=== PATIENT | male | born 1980 | race Caucasian/White ===

== ENCOUNTER 2016-11-05 18:15 | Inpatient (IN) | payer OTHER, BC ==
[~2016-11-05] VITALS: Ht 165.1 cm; Wt 68.5 kg
[2016-11-06] VITALS: BP 132/79
[2016-11-06] MEDS ORDERED: ONDANSETRON ODT 4 MG TAB.RAPDIS SL PRN
[2016-11-06] MEDS ORDERED: DICYCLOMINE HCL 20 MG TABLET PO PRN
[2016-11-06] MEDS ORDERED: MAG HYDROX/AL HYDROX/SIMETH 30 ML LIQUID UDC PO PRN
[2016-11-06] MEDS ORDERED: diphenhydrAMINE 50 MG CAPSULE PO PRN
[2016-11-06] MEDS ORDERED: MAGNESIUM HYDROXIDE 30 ML LIQUID UDC PO PRN
[2016-11-06] MEDS ORDERED: LORAZEPAM 2 MG/1 ML VIAL IM PRN
[2016-11-06] MEDS ORDERED: LOPERAMIDE HCL 2 MG CAPSULE PO PRN ×2
[2016-11-06] MEDS ORDERED: MIRALAX 17 GM POWD.PACK PO PRN
[2016-11-06] MEDS ORDERED: LORAZEPAM 1 MG TABLET PO PRN ×2
[2016-11-06] MEDS ORDERED: IBUPROFEN 400 MG TABLET PO PRN
--- NOTE | 2016-11-06 00:15 | NUR ---
Intake Assessment Assessment done at intake office. Patient is alert & oriented to name, place & situation. Pt is ambulatory with a steady gait. Patient appears intoxicated but cooperative during interviews. Speech is slurred but audible. Vitals noted B/P 132/79, NC 108, RR 18, Temp 97.1, O2Sat 94%. Pt is here for ETOH. No seizure history noted. Pt has no known food and drug allergies. Pt brought his home medications. Explained to pt unit protocols. Pt informed on policy regarding destruction of any controlled substances/prescription brought to facility and handling of all medications. Pt verbalized understanding.
--- NOTE | 2016-11-06 00:28 | NUR ---
ADMISSION NOTE: Patient is a 36 y.o male admitted at [facility] at approximately 0028pm of 11/06/16 for medically supervised withdrawal from ETOH. Body search done and skin check performed in Room 303, no contraband found. Surgery scar noted on his left foot. Pt is 5'5" tall and weighs 151 lbs in a standing scale. Pt is cooperative during assessment. Patient is oriented to floor unit and room. Patient follows a regular diet at home with no known food and drug allergies. Pt wishes to be full Code. Patient is alert & oriented x4, ambulatory with a steady gait. Speech is slurred but audible. Pt is intoxicated but able to answer questions. Patient appears anxious and agitated. Respiration even & unlabored. Abdomen soft & non-distended. Bowel sounds active in all four quadrants. No nausea/vomiting noted. Patient complains of 8/10 headache & sweating. Gross tremors noted. Pt denies any hallucinations. Vitals upon admission: B/P 132/79, ND 108, Temp 97.1, RR 18, O2Sat 94%. Patient noted with past medical history of Anxiety, Depression, Insomnia, Knee Surgery, Left foot surgery(Jul 2016) & low WBC. No history of suicide attempt. Pt currently denies SI/HI. Pt was able to provide urine sample for drug screen upon admission and is voiding clear yellow urine with no problems. Substance use: 1. ETOH- Pt has been drinking since 18 years old. Pt drinks 2 pint of Vodka/Rum/Whiskey/Beer daily for 7 months. Last drink was 2 pint 4 hours prior to admission. 2. [place]- Pt took 3 pills of prescription [place] prior to admission. Pt denies dependence on [place]. It was prescribed to him for pain after his foot surgery but has not been taking it. 3. Marijuana- pt smokes 1 gram daily. Last smoke was1 gram yesterday 11/04/16. Treatment History: -[facility] in [place] for 3 months(2003) -[facility] in [place] for 28 days (Mar 2016) Patient reported that he had an endoscopy a week ago and was suppose to stay there for a couple of days but left AMA and only stayed there for 8 hours. Patient reports his longest period of sobriety was for 3 months 3 months 2 years ago. Patient reports symptoms when he does not use as hot and cold sweats, shaking, tachycardia, headache, anxiety, and agitation. Patient smokes 10-20 cigarettes daily. Patient refused pneumonia vaccine, educated patient risk & benefits but still refused. Patient does not have a PCP. Urine drug screen came back positive for Cannabinoids & Opiates. Alcohol level is 0.22. Fall & Seizure precautions are in place. All needs attended & met. Safety precautions are in place. Bed locked in lowest position. Both side rails padded & up. Call light within pt's reach. Notified Dr. Wall of pt's admission and will see pt in the morning. Awaiting for admission order. Will continue to monitor patient. Addendum: 11/06/16 at 0358 by JUS CHE RN surgery scar noted on his left food. Skin intact. No drainage or bleeding noted.
[2016-11-06] MEDS ORDERED: THIAMINE HCL 200 MG/2 ML VIAL IM ONE (00:30)
[2016-11-06 00:39] LABS: *AMPHETAMINE, URINE NEGATIVE (NEGATIVE); *BARBITURATE, URINE NEGATIVE (NEGATIVE); *CANNABINOID, URINE POSITIVE (NEGATIVE); *COCCAINE, URINE NEGATIVE (NEGATIVE); *OPIATE, URINE POSITIVE (NEGATIVE); *PHENCYCLIDINE SCREEN,URINE NEGATIVE (NEGATIVE)
--- NOTE | 2016-11-06 00:42 | NUR ---
PRN Ativan & Motrin Patient presented with sweating, gross tremors, 8/10 headache & shortness of breath. Pt appears moderately anxious and agitated. No hallucinations or nausea noted. CIWA 14 noted at this time. B/P 131/74, HR 105, RR 16, O2Sat 97%. PRN Ativan 1mg & Motrin administered as ordered. Will monitor for effectiveness of medication.
[2016-11-06] MEDS ORDERED: LORAZEPAM 1 MG TABLET ONE (00:43)
[2016-11-06] MEDS ORDERED: IBUPROFEN 400 MG TABLET ONE (00:44)
[2016-11-06 00:45] VITALS: BP 131/74
[2016-11-06] MEDS ORDERED: THIAMINE HCL 200 MG/2 ML VIAL ONE (00:46)
[2016-11-06 01:07] LABS: BASOPHILS % (AUTO) 0.4 % (0.0-2.0); EOSINOPHILS # (AUTO) 0.1 K/uL (0.0-0.7); EOSINOPHILS % (AUTO) 0.6 % (0.0-7.0); HEMATOCRIT 43.7 % (40-50); HEMOGLOBIN 14.8 G/DL (14.0-18.0); MEAN CORPUSCULAR HEMOGLOBIN 31.1 UUG (27.0-31.0); MEAN CORPUSCULAR HGB CONC 34 g/dL (32.0-37.0); MEAN CORPUSCULAR VOLUME 92.1 FL (82.0-92.0); MONOCYTES # (AUTO) 0.7 K/UL (0.1-1.30); MONOCYTES % (AUTO) 7.7 % (0.0-11.0); NEUTROPHILS # (AUTO) 4.4 K/UL (1.8-8.9); NEUTROPHILS % (AUTO) 48.3 % (38.5-71.5); PLATELET COUNT (AUTO) 219 K/UL (150-450); RED BLOOD CELL COUNT(AUTO) 4.75 MIL/UL (4.7-6.1); WHITE BLOOD COUNT (AUTO) 9.2 K/UL (4.0-11.2)
[2016-11-06 01:11] LABS: BILIRUBIN,TOTAL 0.4 mg/dL (0.2-1.0); MAGNESIUM 2.1 mg/dL (1.8-2.4); POTASSIUM 3.4 mmol/L (3.5-5.1); TOTAL PROTEIN, SERUM 7.6 g/dL (6.4-8.2)
[2016-11-06 01:21] LABS: THYROID STIMULATING HORMONE 1.619 mIU/mL (0.358-3.740)
--- NOTE | 2016-11-06 01:42 | NUR ---
PRN Reassessment Patient noted with fine tremors, sweating, moderate headache, mild anxiety and mild agitation. No hallucinations noted. CIWA 9 noted at this time. Will continue to monitor patient.
[2016-11-06] MEDS ORDERED: POTASSIUM CHLORIDE 20 MEQ TAB.PRT.SR PO ONE (01:45)
[2016-11-06] MEDS: ACETAMINOPHEN 325 MG TABLET PO PRN ×3 (01:47→14:02)
--- NOTE | 2016-11-06 01:47 | NUR ---
PRN Tylenol and one time K-dur 40MeQ. Patient still complaining of 8/10 headache. Patient noted with facial grimacing and restlessness. PRN Tylenol administered as ordered. Pt also noted with a potassium level of 3.4. K-dur 40meQ administered as ordered for replacement. Will continue to monitor patient.
[2016-11-06] MEDS ORDERED: GABA-534 PO (01:52)
[2016-11-06] MEDS ORDERED: DICL2.5D EACHEYE (01:52)
[2016-11-06] MEDS ORDERED: ACETAMINOPHEN 325 MG TABLET ONE (01:56)
[2016-11-06] MEDS ORDERED: POTASSIUM CHLORIDE 20 MEQ TAB.PRT.SR ONE (01:57)
[2016-11-06] MEDS ORDERED: LIDO30CR TP (02:00)
[2016-11-06] MEDS ORDERED: METH4TAB16 PO (02:00)
[2016-11-06] MEDS ORDERED: NAPR-1160 PO (02:00)
[2016-11-06] MEDS ORDERED: HYDR-3326 PO (02:00)
--- NOTE | 2016-11-06 04:00 | NUR ---
Vitals/CIWA deferred Patient refused vitals at this time. Patient is asleep and appears comfortable. No shortness of breath noted. Unable to assess CIWA at this time. Will continue to monitor patient.
[2016-11-06] MEDS ORDERED: DICL2.5D TP (06:10)
--- NOTE | 2016-11-06 07:15 | NUR ---
End of Shift Note: Patient is a 36 y/o male admitted on 0028 of 11/06/16 for ETOH dependence. Patient noted with past medical history of Anxiety, Depression, Insomnia, Knee Surgery, Left foot surgery(Jul 2016) & low WBC(leukocytopenia). No seizure history noted. Patient is on a regular diet with no known food and drug allergies. Full Code status. Patient has no taper yet. Patient was given PRN Ativan, Motrin & Tylenol during my shift. Patient remained stable and vitals remains WNL. Pt still asleep at this time with no s/s of distress noted. Pt was able to sleep for a total of 3 hours. Consumed 850 ml of fluids. Voided 1x with no bowel movement. All needs attended met. Safety measures in place. Will endorse pt to day shift nurse.
[2016-11-06 08:00] VITALS: BP 114/79
[2016-11-06] MEDS: MULTIVITAMINS,THERAPEUTIC TABLET PO SCH (08:18)
[2016-11-06] MEDS: THIAMINE HCL 100 MG TABLET PO SCH (08:18)
[2016-11-06] MEDS: FOLIC ACID 1 MG TABLET PO SCH (08:18)
--- NOTE | 2016-11-06 08:18 | NUR ---
START OF SHIFT Received report from weight shifter nurse. Patient is 36 year old male admitted for medically supervised withdrawal from alcohol. Patient is full code with NKA. On assessment this AM: CIWA: 16. Denies SOB, chest pain. vitals signs WNL. Reports anxiety agitation, tremors, headache 12/10, stomach upset, numbness on hands and feet and noted agitation. Med compliant with AM meds. PRN Tylenol and Ativan 2mg given. Will continue to monitor patient. Patient was encouraged to attend group meetings today. Will continue to monitor patient. Addendum: 11/06/16 at 0908 by RUBEN ANG RN Patient received PPD skin test on LFA to be read 11/08/16.
[2016-11-06] MEDS: CLONIDINE HCL 0.1 MG TABLET PO PRN (08:19)
--- NOTE | 2016-11-06 08:19 | NUR ---
PRN TYLENOL AND ATIVAN Patient complains of severe headache 8/10 and anxiety. Patient noted agitated and tremulous as well. PRN Tylenol and Ativan 2mg given. CIWA = 16. Will continue to monitor patient.
--- NOTE | 2016-11-06 08:19 | NUR ---
PRN CLONIDINE Patient complained of anxiety. Noted patient agitated as well. PRN clonidine was given. Will continue to monitor patient. BP 114/79, HR 88.
--- NOTE | 2016-11-06 08:19 | NUR ---
PRN BENTYL Patient complained of stomach cramping. PRN Bentyl given. Will continue to monitor patient.
[2016-11-06] MEDS ORDERED: LIDOCAINE/PRILOCAINE 5 GM CREAM.GM. TP SCH (09:00)
[2016-11-06] MEDS ORDERED: LORAZEPAM 1 MG TABLET PO SCH (09:00)
[2016-11-06] MEDS ORDERED: GABAPENTIN 300 MG CAPSULE PO SCH (09:00)
[2016-11-06] MEDS ORDERED: TUBERCULIN,PURIF.PROT.DERIV. 5 TU/0.1 ML TEST ID ONE (09:00)
[2016-11-06] MEDS ORDERED: DICLOFENAC 0.1% OPHT DROP 2.5 ML BOTTLE EACHEYE PRN (09:00)
--- NOTE | 2016-11-06 09:19 | NUR ---
REASSESSMENT BENTYL Patient reports stomach cramping resolved.
--- NOTE | 2016-11-06 09:19 | NUR ---
REASSESSMENT PRN TYLENOL, ATIVAN, CLONIDINE Patient reports pain decreased from 8/10 to 5/10. He also reports decreased anxiety.
--- NOTE | 2016-11-06 09:31 | NUR ---
HELD 0900 ATIVAN DOSE Held new order of scheduled 0900 Ativan as discussed with MD. Patient recently received PRN Ativan 2mg at 0819am. Patient is now on Ativan taper.
--- NOTE | 2016-11-06 09:55 | NUR ---
Therapist prompted client to attend group therapy. Therapist informed client of group times. Client stated that he would attend if he was feeling well.
[2016-11-06] MEDS: LORAZEPAM 1 MG TABLET PO SCH ×4 (10:53→20:32)
[2016-11-06] MEDS: NAPROXEN 500 MG TABLET PO PRN ×2 (10:53→17:38)
--- NOTE | 2016-11-06 10:53 | NUR ---
PRN NAPROXEN Patient complains of pain 5/10. PRN naproxen was given. Will continue to monitor patient.
[2016-11-06] MEDS ORDERED: DICLOFENAC 1.5% TOP PRN (11:15)
[2016-11-06] MEDS ORDERED: TRAZODONE 50 MG TABLET PO PRN (11:30)
--- NOTE | 2016-11-06 11:53 | NUR ---
REASSESSMENT NAPROXEN Patient reports pain decreased to 2/10.
[2016-11-06 12:00] VITALS: BP 125/82
[2016-11-06] MEDS ORDERED: LIDOCAINE/PRILOCAINE 5 GM CREAM.GM. TP PRN (13:00)
--- NOTE | 2016-11-06 14:02 | NUR ---
PRN TYLENOL Patient complains of headache 5/10. PRN Tylenol given. Will continue to monitor patient.
[2016-11-06] MEDS: GABAPENTIN 300 MG CAPSULE PO SCH ×2 (14:03→20:32)
--- NOTE | 2016-11-06 15:02 | NUR ---
REASSESSMENT TYLENOL Patient reports pain decreased to 2/10.
[2016-11-06 17:00] VITALS: BP 134/94
[2016-11-06] MEDS: HYDROXYZINE PAMOATE 25 MG CAPSULE PO PRN (17:38)
--- NOTE | 2016-11-06 17:38 | NUR ---
PRN NAPROXEN AND VISTARIL Patient complains of throbbing headache /10 and anxiety. PRN naproxen and vistaril given. Will continue to monitor patient.
--- NOTE | 2016-11-06 18:37 | NUR ---
END OF SHIFT Patient is 36 year old male admitted for medically supervised withdrawal from alcohol. Patient is full code with NKA. PRN Ativan 2mg po was given in the morning. Held new order of scheduled 0900 Ativan as discussed with MD. Patient later started 5-day Ativan taper, first dose scheduled at 10:45am. Most recent CIWA: 8. Patient reports anxiety, sweating, tremors, numbing sensation. PRN Bentyl, clonidine, Ativan, Tylenol, naproxen and vistaril given this shift. Patient reports mild pain on L foot but declined his prn pain med when offered. Compliant with routine meds during this shift. Patient tolerating meals without n/v. paperhanger contractormanager shift will continue to monitor patient.
--- NOTE | 2016-11-06 18:38 | NUR ---
REASSESSMENT PRN NAPROXEN AND VISTARIL Patient reports pain decreased to 4/10 and decreased anxiety.
--- NOTE | 2016-11-06 19:15 | NUR ---
Start of Shift Note: Patient is a 36 y/o male admitted on 0028 of 11/06/16 for ETOH dependence. Patient noted with past medical history of Anxiety, Depression, Insomnia, Knee Surgery, Left foot surgery(Jul 2016). No seizure history noted. Patient is on a regular diet with no known food and drug allergies. Full Code status. Patient was started on a 5-day Ativan taper and tolerating well. Pt was given PRN Ativan, Clonidine, Tylenol, Naproxen x2, Vistaril & Bentyl during day shift. Last CIWA is 8. Patient is alert & oriented to name, place and situation. Patient is not in any distress. No shortness of breath noted. Abdomen soft & non-distended. No nausea/noted. Patient lying in bed and complaining of light headedness, mild headache, anxiety and very mild visual sensitivity. Bilateral hand tremors noted. Patient denies tactile and auditory hallucinations. Patient remained compliant with treatment plan. Safety precautions are in place. Bed locked in lowest position. Both side rails up. Call light within pt's reach. Will continue to monitor patient.
[2016-11-06 20:00] VITALS: BP 139/97
[2016-11-06] MEDS: MIRTAZAPINE 15 MG TABLET PO SCH (20:32)
[2016-11-07] VITALS: BP 102/56
[2016-11-07 04:00] VITALS: BP 97/54
[2016-11-07 05:06] LABS: HEPATITIS B SURFACE AG Negative (Negative)
--- NOTE | 2016-11-07 06:59 | NUR ---
End of Shift Note: Pt had an uneventful night. Pt continues on his Ativan taper and tolerating well. Pt remained stable and vitals remains WNL. No PRN medications given during my shift. Pt remained compliant with medications and treatment plan. Pt still asleep at this time with no s/s of distress noted. Pt was able to sleep for a total of 8 hours. Consumed 605 ml of fluids. Voided 1x with no bowel movement. All needs attended met. Safety measures in place. Will endorse pt to day shift nurse.
--- NOTE | 2016-11-07 07:30 | NUR ---
Start of shift note; Patient is AOX4. Patient is a 36 year old male admitted on 11/05/16 for ETOH/Opiate withdrawals. Patient was placed on a 5 day Ativan taper, no adverse reactions noted. Patient is on full code, regular status. Patient reported history of Anxiety, depression, insomnia, knee surgery, left foot surgery. All safety measures secured. Will continue to monitor patient.
[2016-11-07 08:00] VITALS: BP 105/73
[2016-11-07] MEDS: FOLIC ACID 1 MG TABLET PO SCH (08:55)
[2016-11-07] MEDS: MULTIVITAMINS,THERAPEUTIC TABLET PO SCH (08:55)
[2016-11-07] MEDS: GABAPENTIN 300 MG CAPSULE PO SCH ×3 (08:55→22:04)
[2016-11-07] MEDS: LORAZEPAM 1 MG TABLET PO SCH ×3 (08:55→22:05)
[2016-11-07] MEDS: THIAMINE HCL 100 MG TABLET PO SCH (08:55)
[2016-11-07 12:00] VITALS: BP 132/82
[2016-11-07] MEDS: CLONIDINE HCL 0.1 MG TABLET PO PRN (13:03)
--- NOTE | 2016-11-07 13:04 | NUR ---
PRN medication; Patient's BP noted to be elevated, 152/102, PRN Clonidine 0.1mg PO given for high BP. Will continue to monitor patient for effectiveness of medication.
--- NOTE | 2016-11-07 14:04 | NUR ---
Re-assessment; Patient's current BP is 120/75, HR of 82, PRN Clonidine is effective.
[2016-11-07 16:00] VITALS: BP 134/82
--- NOTE | 2016-11-07 16:35 | NUR ---
Therapist prompted client to attend group. Client stated that he would attend.
--- NOTE | 2016-11-07 18:24 | NUR ---
End of shift note; Patient is AOX4. Patient remained compliant with treatment plan and medication regime. Medications were effective in reducing withdrawal symptoms. All safety measures secured. Met all needs.
--- NOTE | 2016-11-07 19:15 | NUR ---
Start of Shift Note: Patient is a 36 y/o male admitted on 0028 of 11/06/16 for ETOH dependence. Patient noted with past medical history of Anxiety, Depression, Insomnia, Knee Surgery, Left foot surgery(Jul 2016). No seizure history noted. Patient is on a regular diet with no known food and drug allergies. Full Code status. Patient was started on a 5-day Ativan taper and tolerating well. Pt was given PRN Clonidine during day shift. Last CIWA is 3. Patient is alert & oriented to name, place and situation. Patient is ambulatory with a steady gait. Patient is not in any distress. No shortness of breath noted. Abdomen soft & non-distended. No nausea/noted. Patient presented with complaints of mild headache & anxiety. Bilateral hand tremors noted. Patient denies hallucinations. Patient remained compliant with treatment plan. Safety precautions are in place. Bed locked in lowest position. Both side rails up. Call light within pt's reach. Will continue to monitor patient.
[2016-11-07 20:00] VITALS: BP 107/78
[2016-11-07] MEDS ORDERED: PRAZOSIN HCL 1 MG CAPSULE PO SCH (21:00)
[2016-11-07] MEDS: MIRTAZAPINE 15 MG TABLET PO SCH (22:05)
--- NOTE | 2016-11-07 22:05 | NUR ---
PRN Trazodone Patient requesting for medication to help him sleep. PRN Trazodone administered as ordered. Will continue to monitor patient.
[2016-11-08] VITALS: BP 129/90
[2016-11-08] MEDS: HYDROXYZINE PAMOATE 25 MG CAPSULE PO PRN ×2 (00:16→14:25)
--- NOTE | 2016-11-08 00:16 | NUR ---
PRN Vistaril Patient complaining of anxiety. Patient appears restless. PRN Vistaril administered as ordered. Will continue to monitor patient.
--- NOTE | 2016-11-08 01:16 | NUR ---
PRN Reassessment Patient is asleep in bed at this time and appears comfortable. No s/s of distress noted at this time. Will continue to monitor patient.
[2016-11-08 04:00] VITALS: BP 108/76
--- NOTE | 2016-11-08 07:07 | NUR ---
End of Shift Note: Pt had an uneventful night. Pt continues on his Ativan taper and tolerating well. Pt remained stable and vitals remains WNL. Pt was given PRN Trazodone and Vistaril during my shift and were effective. Pt remained compliant with medications and treatment plan. Pt still asleep at this time with no s/s of distress noted. Pt was able to sleep for a total of 5 hours. Consumed 1000 ml of fluids. Voided 2x with no bowel movement. All needs attended met. Safety measures in place. Will endorse pt to day shift nurse.
--- NOTE | 2016-11-08 07:40 | NUR ---
START OF SHIFT NOTE Received report from night, 36 year old male admitted for ETOH dependence. Patient reported past medical history of Anxiety, Depression, Insomnia, Knee Surgery, Left foot surgery(Jul 2016). No seizure history noted. Patient cont with 5-day Ativan taper and tolerating well. Pt received PRN Trazodone, Vistaril effective per night nurse, Last CIWA-3, slept for 5 hours. Upon assessment pt is alert awake oriented x4 in stable condition. Educated regarding plan of care for the day and medication regimen with good verbal understanding. Safety measures in place. Will cont to monitor.
[2016-11-08 08:00] VITALS: BP 124/75
[2016-11-08] MEDS: FOLIC ACID 1 MG TABLET PO SCH (08:36)
[2016-11-08] MEDS: THIAMINE HCL 100 MG TABLET PO SCH (08:36)
[2016-11-08] MEDS: LORAZEPAM 1 MG TABLET PO SCH ×4 (08:36→20:43)
[2016-11-08] MEDS: MULTIVITAMINS,THERAPEUTIC TABLET PO SCH (08:36)
[2016-11-08] MEDS: GABAPENTIN 300 MG CAPSULE PO SCH ×3 (08:36→20:42)
[2016-11-08 12:00] VITALS: BP 123/91
--- NOTE | 2016-11-08 14:25 | NUR ---
PRN VISTARIL Pt complaining of anxiety. PRN Vistaril administered as ordered. Will continue to monitor and reassess.
[2016-11-08] MEDS: NAPROXEN 500 MG TABLET PO PRN (15:20)
--- NOTE | 2016-11-08 15:20 | NUR ---
PT REPORTS HIS FEET FEEL ACHY AND REQUESTS NAPROXEN. PRN NAPROXYN ADMINISTERED ORSERED. WILL MONITOR EFFECTIVENESS OF MEDICATION.
--- NOTE | 2016-11-08 15:25 | NUR ---
REASSESSMENT Pt reported medication effective anxiety subside.
[2016-11-08 16:00] VITALS: BP 122/81
--- NOTE | 2016-11-08 16:20 | NUR ---
REASSESSMENT Pt denies pain at this time. Medication effective.
--- NOTE | 2016-11-08 19:04 | NUR ---
END OF SHIFT NOTE Endorsed pt to night nurse. Pt is alert awake oriented x4, 36 year old male admitted for ETOH dependence. Pt is full code regular diet on fall and seizure precaution denies any food or drug allergies. Pt cont with 5 day Ativan taper. Pt remains compliant with the treatment plan. Patient encouraged adequate PO fluid intake as tolerated. During shift patient presented with anxiousness, pain. Pt given PRN Vistaril, Naproxen. Last CIWA-2. Patient encouraged to attend group therapies/sessions to learn new coping skills to prevent relapse, patient denies SI/HI. Safety measures in place. Call light kept within reach.
--- NOTE | 2016-11-08 19:15 | NUR ---
START OF SHIFT: Patient is 36 year old male admitted for medically supervised withdrawal from alcohol. Patient is full code with NKA. Denies SOB, chest pain. vitals signs WNL. Pt. reports anxiety, tremors, headache 4/10, numbness feet. Patient is alert & oriented x4. No shortness of breath noted at this time. Respiration even & unlabored. Abdomen soft & non-distended. No nausea/vomiting noted.Will continue to monitor patient. Patient was encouraged to attend group meetings today. Will continue to monitor patient. Safety measures in place : bed on lowest position with side rails x2 up for safety, call light within reach. Will continue to monitor closely and offer help.
[2016-11-08 20:00] VITALS: BP 119/72
[2016-11-08] MEDS: MIRTAZAPINE 15 MG TABLET PO SCH (20:40)
[2016-11-08] MEDS: PRAZOSIN HCL 1 MG CAPSULE PO SCH (20:40)
--- NOTE | 2016-11-09 | NUR ---
PRN BENADRYL Pt. complains of sleeplessness. PRN BENADRYL given as ordered. Safety measures in place : bed on lowest position with side rails x2 up for safety, call light within reach. Will continue to monitor closely and offer help.
[2016-11-09] MEDS ORDERED: diphenhydrAMINE 50 MG CAPSULE PO ONE (00:15)
[2016-11-09] MEDS ORDERED: diphenhydrAMINE 50 MG CAPSULE ONE (00:37)
--- NOTE | 2016-11-09 01:00 | NUR ---
REASSESSMENT JEFERSON Pt. is sleeping, RR=16, unlabored and even. . Safety measures in place : bed on lowest position with side rails x2 up for safety, call light within reach. Will continue to monitor closely and offer help.
--- NOTE | 2016-11-09 06:37 | NUR ---
END OF SHIFT: Patient is 36 year old male admitted for medically supervised withdrawal from alcohol. Patient is full code with NKA. Denies SOB, chest pain. vitals signs WNL. Pt. reports anxiety and sleeplessness, wants to talk to in A.M. Patient is alert & oriented x4. Pt remains compliant with the treatment plan. PRN BENADRYL given during my shift. V/S remain WNL. RR=16, even and unlabored, lungs clear upon auscultation, abdomen soft and non- distended. Pt denies nausea, vomiting and diarrhea. LAST CIWA= 2 at 0400 , [id number] ml, voided x2 , slept 4 hours. Patient was encouraged to attend group meetings today. Safety measures in place : bed on lowest position with side rails x2 up for safety, call light within reach. Will continue to monitor closely and offer help.
--- NOTE | 2016-11-09 06:41 | NUR ---
PRN VISTARIL Pt. complains of increased level of anxiety. PRN VISTARIL given as ordered. Safety measures in place : bed on lowest position with side rails x2 up for safety, call light within reach. Will continue to monitor closely and offer help. Addendum: 11/10/16 at 0643 by ADDIS GAFFNEY RN WRONG ENTRY
--- NOTE | 2016-11-09 07:38 | NUR ---
START OF SHIFT NOTE Received report from night, 36 year old male admitted for ETOH dependence. Patient reported past medical history of Anxiety, Depression, Insomnia, Knee Surgery, Left foot surgery(Jul 2016). No seizure history noted. Patient cont with 5-day Ativan taper and tolerating well. Pt received PRN Benadryl effective per night nurse, Last CIWA-2, slept for 4 hours. Upon assessment pt is alert awake oriented x4 in stable condition. Educated regarding plan of care for the day and medication regimen with good verbal understanding. Safety measures in place. Will cont to monitor.
[2016-11-09 08:00] VITALS: BP 108/72
[2016-11-09] MEDS: THIAMINE HCL 100 MG TABLET PO SCH (08:13)
[2016-11-09] MEDS: MULTIVITAMINS,THERAPEUTIC TABLET PO SCH (08:13)
[2016-11-09] MEDS: FOLIC ACID 1 MG TABLET PO SCH (08:13)
[2016-11-09] MEDS: GABAPENTIN 300 MG CAPSULE PO SCH ×3 (08:13→23:06)
[2016-11-09] MEDS: LORAZEPAM 1 MG TABLET PO SCH ×2 (08:13→14:44)
[2016-11-09 08:14] LABS: CREATININE 0.8 mg/dL (0.6-1.3); POTASSIUM 4.2 mmol/L (3.5-5.1)
[2016-11-09 12:00] VITALS: BP 137/95
[2016-11-09] MEDS: DIVALPROEX 250 MG TABLET.DR PO SCH ×2 (15:51→23:06)
--- NOTE | 2016-11-09 15:51 | NUR ---
NEW ORDER Pt was seen by Dr. Penn with new order of Depakote 250mg TID. First dose given as ordered.
[2016-11-09 16:00] VITALS: BP 121/86
--- NOTE | 2016-11-09 18:46 | NUR ---
END OF SHIFT NOTE Endorsed pt to night nurse. Pt is alert awake oriented x4, 36 year old male admitted for ETOH dependence. Pt is full code regular diet on fall and seizure precaution denies any food or drug allergies. Pt cont with 5 day Ativan taper tolerating well. Pt remains compliant with the treatment plan. Patient encouraged adequate PO fluid intake as tolerated. During shift patient did receive any PRN. Last CIWA-2. Patient encouraged to attend group therapies/sessions to learn new coping skills to prevent relapse, patient denies SI/HI. Safety measures in place. Call light kept within reach.
--- NOTE | 2016-11-09 19:15 | NUR ---
START OF SHIFT NOTE : Pt. is 36 year old male admitted for ETOH dependence. Patient reported past medical history of Anxiety, Depression, Insomnia, Knee Surgery, Left foot surgery(Jul 2016). No seizure history noted. Patient cont with 5-day Ativan taper and tolerating well. Upon assessment pt is alert awake oriented x4 in stable condition. Educated regarding plan of care for the day and medication regimen with good verbal understanding. Safety measures in place : bed on lowest position with side rails x2 up for safety, call light within reach. Will continue to monitor closely and offer help.
[2016-11-09 20:00] VITALS: BP 136/91
[2016-11-09] MEDS: HYDROXYZINE PAMOATE 25 MG CAPSULE PO PRN (20:20)
[2016-11-09] MEDS: PRAZOSIN HCL 1 MG CAPSULE PO SCH (20:21)
[2016-11-09] MEDS ORDERED: LORAZEPAM 1 MG TABLET PO SCH (21:00)
--- NOTE | 2016-11-09 21:00 | NUR ---
PRN VISTARIL Pt. complains of increased level of anxiety. PRN VISTARIL given as ordered. Safety measures in place : bed on lowest position with side rails x2 up for safety, call light within reach. Will continue to monitor closely and offer help.
--- NOTE | 2016-11-09 22:00 | NUR ---
REASSESSMENT VISTARIL Pt. is sleeping, RR=16, unlabored and even. Safety measures in place : bed on lowest position with side rails x2 up for safety, call light within reach. Will continue to monitor closely and offer help.
[2016-11-09] MEDS: MIRTAZAPINE 15 MG TABLET PO SCH (23:06)
--- NOTE | 2016-11-10 06:32 | NUR ---
END OF SHIFT NOTE : Pt. is 36 year old male admitted for ETOH dependence. Patient reported past medical history of Anxiety, Depression, Insomnia, Knee Surgery, Left foot surgery(Jul 2016). No seizure history noted. Patient cont with 5-day Ativan taper and tolerating well. Upon assessment pt is alert awake oriented x4 in stable condition. Educated regarding plan of care for the day and medication regimen with good verbal understanding. Pt remains compliant with the treatment plan. PRN VISTARIL given during my shift. V/S remain WNL. RR=16, even and unlabored, lungs clear upon auscultation, abdomen soft and non- distended. Pt denies nausea, vomiting and diarrhea. LAST CIWA=4 at 0400 , [id number] ml, voided x 3, slept 6 hours. Safety measures in place : bed on lowest position with side rails x2 up for safety, call light within reach. Will continue to monitor closely and offer help.
--- NOTE | 2016-11-10 07:41 | NUR ---
START OF SHIFT NOTE Received report from night, 36 year old male admitted for ETOH dependence. Patient reported past medical history of Anxiety, Depression, Insomnia, Knee Surgery, Left foot surgery(Jul 2016). No seizure history noted. Patient cont with 5-day Ativan taper and tolerating well. Pt received PRN Vistaril effective per night nurse, Last CIWA-4, slept for 6 hours. Upon assessment pt is alert awake oriented x4 in stable condition. Educated regarding plan of care for the day and medication regimen with good verbal understanding. Safety measures in place. Will cont to monitor.
[2016-11-10 08:00] VITALS: BP 127/93
[2016-11-10] MEDS: LORAZEPAM 1 MG TABLET PO SCH ×2 (08:12→20:44)
[2016-11-10] MEDS: FOLIC ACID 1 MG TABLET PO SCH (08:12)
[2016-11-10] MEDS: THIAMINE HCL 100 MG TABLET PO SCH (08:12)
[2016-11-10] MEDS: MULTIVITAMINS,THERAPEUTIC TABLET PO SCH (08:12)
[2016-11-10] MEDS: GABAPENTIN 300 MG CAPSULE PO SCH ×3 (08:12→20:45)
[2016-11-10] MEDS: DIVALPROEX 250 MG TABLET.DR PO SCH ×3 (08:13→20:45)
[2016-11-10] MEDS: NAPROXEN 500 MG TABLET PO PRN (11:44)
--- NOTE | 2016-11-10 11:44 | NUR ---
PRN NAPROXEN Pt c/o of left foot pain 08/10. Administered PRN Naproxen 500mg as ordered. Will cont to monitor and reassess.
[2016-11-10 12:00] VITALS: BP 117/79
--- NOTE | 2016-11-10 12:44 | NUR ---
REASSESSMENT Pt reported medication effective pain level decreased to 1/10.
[2016-11-10 16:00] VITALS: BP 130/87
--- NOTE | 2016-11-10 19:09 | NUR ---
END OF SHIFT NOTE Endorsed pt to night nurse. Pt is alert awake oriented x4, 36 year old male admitted for ETOH dependence. Pt is full code regular diet on fall and seizure precaution denies any food or drug allergies. Pt cont with 5 day Ativan taper tolerating well. Pt remains compliant with the treatment plan. Patient encouraged adequate PO fluid intake as tolerated. During shift patient did received PRN Naproxen for pain effective with pain scale 1/10. Last CIWA-1. Patient encouraged to attend group therapies/sessions to learn new coping skills to prevent relapse, patient denies SI/HI. Safety measures in place. Call light kept within reach.
--- NOTE | 2016-11-10 19:30 | NUR ---
START OF SHIFT Pt is 36 y/o male admitted for ETOH dependence. Pt is full code regular diet on fall and seizure precaution denies any food or drug allergies. A/A/O X 4.Pt continues with 5 day Ativan taper tolerating well. Pt received in stable condition; remains compliant with the treatment plan. Patient encouraged adequate PO fluid intake as tolerated. Last CIWA-1. All safety measures in place. Call light kept within reach. Will continue to monitor.
[2016-11-10 20:00] VITALS: BP 129/90
[2016-11-10] MEDS: DIVALPROEX ER 250 MG TAB.SR.24H PO SCH (20:45)
[2016-11-10] MEDS: PRAZOSIN HCL 1 MG CAPSULE PO SCH (20:46)
[2016-11-10] MEDS: MIRTAZAPINE 15 MG TABLET PO SCH (20:47)
[2016-11-11] VITALS: BP 127/86
[2016-11-11 04:00] VITALS: BP 124/84
--- NOTE | 2016-11-11 06:40 | NUR ---
END OF SHIFT Pt is 36 y/o male admitted for ETOH dependence. Pt is full code regular diet on fall and seizure precaution denies any food or drug allergies. A/A/O X 4 Pt cont with 5 day Ativan taper tolerating well. Pt received in stable condition; remains compliant with the treatment plan. Patient encouraged adequate PO fluid intake as tolerated. Last CIWA-1.No PRN meds given last night. All safety measures in place. Call light kept within reach. Pt slept 6 hrs,fluid intake was 1473 mls,voided x 2,BM X 1.Will continue to monitor.
--- NOTE | 2016-11-11 07:00 | NUR ---
Start of Shift Notes: Received patient in his room. Awake, alert and verbally responsive. Able to make needs known. Respirations even and unlabored. No SOB noted. Skin warm and dry to touch. Abdomen soft and non-distended with (+) BS in all 4 quadrants. No complains of N/V/D or constipation noted. No complains of abdominal discomfort. Bladder non-distended. No complains of dysuria. Ambulatory ad susanna with steady gait. Patient is a 36 year old male admitted for ETOH dependence who was placed on a 5-day Ativan taper as ordered. Prior to admission, patient was using 2 pints of Vodka, whiskey, rum, and beer x 7 months. Has past medical hx of anxiety, depression, insomnia, left foot surgery and knee surgery. NKA. FULL CODE. Regular diet. On fall and seizure precautions. Educated patient on his current plan of care for the day and his medication regimen. Encouraged oral fluid intake and encouraged group participation to learn new skills to prevent relapse. Will continue to monitor closely.
[2016-11-11 08:00] VITALS: BP 136/88
[2016-11-11] MEDS: DIVALPROEX 250 MG TABLET.DR PO SCH ×3 (08:33→22:04)
[2016-11-11] MEDS: FOLIC ACID 1 MG TABLET PO SCH (08:34)
[2016-11-11] MEDS: GABAPENTIN 300 MG CAPSULE PO SCH ×3 (08:34→22:04)
[2016-11-11] MEDS: THIAMINE HCL 100 MG TABLET PO SCH (08:34)
[2016-11-11] MEDS: MULTIVITAMINS,THERAPEUTIC TABLET PO SCH (08:34)
[2016-11-11] MEDS ORDERED: LORAZEPAM 1 MG TABLET PO SCH (09:00)
[2016-11-11] MEDS ORDERED: KETOROLAC TROMETHAMINE 30 MG INJ IM PRN (11:00)
[2016-11-11] MEDS ORDERED: IBUPROFEN 800 MG TABLET PO PRN (11:00)
[2016-11-11 12:00] VITALS: BP 128/92
[2016-11-11] MEDS ORDERED: PRAZ1CAP2 PO (13:37)
[2016-11-11] MEDS ORDERED: HYDR-3895 PO (13:37)
[2016-11-11] MEDS ORDERED: GABA-534 PO (13:37)
[2016-11-11] MEDS ORDERED: DIVA250T PO (13:37)
[2016-11-11] MEDS ORDERED: IBUP-1957 PO (13:37)
[2016-11-11] MEDS ORDERED: TRAZ-144 PO (13:37)
[2016-11-11] MEDS ORDERED: MIRT15TA7 PO (13:37)
[2016-11-11] MEDS ORDERED: DIVA250T4 PO (13:37)
[2016-11-11 15:53] LABS: *AMPHETAMINE, URINE NEGATIVE (NEGATIVE); *BARBITURATE, URINE NEGATIVE (NEGATIVE); *CANNABINOID, URINE NEGATIVE (NEGATIVE); *COCCAINE, URINE NEGATIVE (NEGATIVE); *OPIATE, URINE NEGATIVE (NEGATIVE); *PHENCYCLIDINE SCREEN,URINE NEGATIVE (NEGATIVE)
[2016-11-11 16:00] VITALS: BP 130/89
--- NOTE | 2016-11-11 18:55 | NUR ---
End of Shift Notes: Patient completed Ativan taper. No adverse reactions noted. No delayed reactions noted. VS monitored closely q 4 hours. No significant abnormalities noted. Withdrawal symptoms were closely monitored. Initial CIWA 3- presented with mild sweats and anxiety. Last CIWA 1. Per patient, Ativan has helped him with his withdrawal symptoms. Completed taper today and will be discharging tomorrow. UDS in and resulted. Patient participated in group and therapy sessions. Compliant with care and treatment. Call light kept in reach. Will continue to monitor closely.
--- NOTE | 2016-11-11 19:15 | NUR ---
Start of Shift Note: Patient is a 36 y/o male admitted on 11/06/16 for ETOH dependence. Patient noted with past medical history of Anxiety, Depression, Insomnia, Knee Surgery, Left foot surgery(Jul 2016). No seizure history noted. Patient is on a regular diet with no known food and drug allergies. Full Code status. Patient completed his 5-day Ativan taper and he is scheduled to be discharge tomorrow. Urine drug screen collected and resulted. No PRN medications given during day shift. Last CIWA is 1. Patient is alert & oriented to name, place and situation. Patient is ambulatory with a steady gait. Patient is not in any distress. No shortness of breath noted. Abdomen soft & non-distended. No nausea/noted. Patient complains of 8/10 left foot pain. No hand tremors noted. Patient denies hallucinations. Patient remained compliant with treatment plan. Safety precautions are in place. Bed locked in lowest position. Both side rails up. Call light within pt's reach. Will continue to monitor patient.
--- NOTE | 2016-11-11 19:47 | NUR ---
PRN Motrin Patient complaining of 8/10 left foot pain. Patient appears restless with facial grimacing noted. PRN Motrin administered as ordered. Will continue to monitor.
[2016-11-11 20:00] VITALS: BP 124/89
--- NOTE | 2016-11-11 20:47 | NUR ---
PRN Reassessment Patient verbalized effectiveness of medication. Pt reported 4/10 pain on left foot at this time. Will continue to monitor.
[2016-11-11] MEDS: DIVALPROEX ER 250 MG TAB.SR.24H PO SCH (22:04)
[2016-11-11] MEDS: PRAZOSIN HCL 1 MG CAPSULE PO SCH (22:05)
[2016-11-11] MEDS: MIRTAZAPINE 15 MG TABLET PO SCH (22:05)
[2016-11-12 04:00] VITALS: BP 128/86
--- NOTE | 2016-11-12 07:18 | NUR ---
End of Shift Note: Pt had an uneventful night. Pt completed his Ativan taper and discharging today. Urine drug screen collected and resulted. Pt remained stable and vitals remains WNL. Patient remained compliant with treatment plan. Pt was given PRN Motrin for generalized pain and was effective. Last CIWA is 1. Pt still asleep at this time with no s/s of distress noted. Pt was able to sleep for a total of 5 hours. Consumed 1000 ml of fluids. Voided 2x with no bowel movement. All needs attended met. Safety measures in place. Will endorse pt to day shift nurse.
--- NOTE | 2016-11-12 07:25 | NUR ---
Start of shift note SBAR report rcv'd. Pt was admitted for ETOH dependence. Pt has a PMHx of anxiety, insomnia, depression, knee surgery and recently had surgery on his left foot. Pt has successfully completed a 5 day ativan taper without any ASE. Pt states that he feels ready for discharge. Pt has no complaints at this time. Will continue to monitor pt.
[2016-11-12 08:00] VITALS: BP 129/91
[2016-11-12] MEDS: DIVALPROEX 250 MG TABLET.DR PO SCH (08:27)
[2016-11-12] MEDS: MULTIVITAMINS,THERAPEUTIC TABLET PO SCH (08:27)
[2016-11-12] MEDS: GABAPENTIN 300 MG CAPSULE PO SCH (08:27)
[2016-11-12] MEDS: THIAMINE HCL 100 MG TABLET PO SCH (08:27)
[2016-11-12] MEDS: FOLIC ACID 1 MG TABLET PO SCH (08:27)
--- NOTE | 2016-11-12 09:45 | NUR ---
Discharge note Pt was admitted for ETOH dependence. Pt has a CIWA of 3 d/t anxiety. Pt VS are WNL. Pt LBM 11/12/16. Pt states that he feels ready for discharge. Pt verbalized his understanding of the discharge instructions. All needs addressed at this time. Pt discharge instructions, medications and all belongings returned to pt. Pt ID band removed, pt ambulated off of unit with [facility], left facility via [facility] for [facility].
== END 2016-11-12 09:45 | disposition other institution (70) | DRG 895 ==
LOC: SRC 23:47
PROVIDERS: ADMIT Internal Medicine; ATTEND Internal Medicine
DX: F10.230 Alcohol dependence with withdrawal, uncomplicated (principal); F32.2 Major depressive disorder, single episode, severe without psychotic features; K70.10 Alcoholic hepatitis without ascites; F12.90 Cannabis use, unspecified, uncomplicated; Y90.9 Presence of alcohol in blood, level not specified; E87.6 Hypokalemia; F17.210 Nicotine dependence, cigarettes, uncomplicated; G47.00 Insomnia, unspecified; F41.9 Anxiety disorder, unspecified; F12.10 Cannabis abuse, uncomplicated; Z80.9 Family history of malignant neoplasm, unspecified
CPT/HCPCS: 36415; 70030-TC; 80307; 80349; 80361; 83690; 83735; 84443; 85025; 86580; 86705; 87340; 87806; G0480; J3411; J3490; Q0163